=== PATIENT | female | born 1960 ===

== ENCOUNTER 2019-09-03 10:29 | Outpatient (CLI) | payer OTHER | END 2019-09-03 11:13 | disposition home or self-care (01) | LOC: LAB 10:29 | DX: I10 Essential (primary) hypertension (principal); E11.9 Type 2 diabetes mellitus without complications; E03.8 Other specified hypothyroidism; E78.2 Mixed hyperlipidemia; M81.0 Age-related osteoporosis without current pathological fracture; R07.89 Other chest pain; I25.10 Atherosclerotic heart disease of native coronary artery without angina pectoris; I63.50 Cerebral infarction due to unspecified occlusion or stenosis of unspecified cerebral artery ==

== ENCOUNTER → 2019-09-03 | Outpatient (CLI) | payer OTHER ==
[~2019-09-03] MED LIST: ANASTROZOLE1 MG; CARDURA1 MG; DIOVAN320 MG; ZOCOR20 MG
== END | disposition home or self-care (01) ==
LOC: TOM 11:02
DX: R55 Syncope and collapse (principal); I10 Essential (primary) hypertension; G45.8 Other transient cerebral ischemic attacks and related syndromes; I63.50 Cerebral infarction due to unspecified occlusion or stenosis of unspecified cerebral artery

== ENCOUNTER 2020-12-23 13:53 | Outpatient (CLI) | payer OTHER | END 2020-12-23 14:14 | disposition home or self-care (01) | LOC: MRI 13:53 | PROVIDERS: ATTEND Internal Medicine Cardiovascular Disease | DX: M43.12 Spondylolisthesis, cervical region (principal) | CPT/HCPCS: 72141 ==

== ENCOUNTER 2021-11-08 18:10 | Emergency (ER) | payer OTHER ==
[~2021-11-08] VITALS: Ht 162.6 cm; Wt 74.8 kg
[2021-11-08] MEDS ORDERED: SYNTHROID100 MCG PO (18:45)
== END 2021-11-08 23:27 | disposition home or self-care (01) ==
LOC: ER 18:10
DX: S09.8XXA Other specified injuries of head, initial encounter (principal); W19.XXXA Unspecified fall, initial encounter; Y93.89 Activity, other specified; Y92.89 Other specified places as the place of occurrence of the external cause; M62.838 Other muscle spasm

== ENCOUNTER 2022-12-14 15:12 | Emergency (ER) | payer OTHER ==
[~2022-12-14] VITALS: Ht 162.6 cm; Wt 77.1 kg
[~2022-12-14 15:12] MED LIST changes: +SYNTHROID100 MCG PO
== END 2022-12-14 21:23 | disposition home or self-care (01) ==
LOC: ER 15:12
DX: R00.2 Palpitations (principal)

== ENCOUNTER 2024-06-17 11:40 | Outpatient (CLI) | payer OTHER | END 2024-06-17 11:42 | disposition home or self-care (01) | LOC: SONOGRAMA 11:40 | PROVIDERS: ATTEND Internal Medicine Cardiovascular Disease | DX: M12.9 Arthropathy, unspecified (principal) ==